=== PATIENT | male | born 1945 | race Caucasian/White ===

== ENCOUNTER 2020-10-15 09:32 | Inpatient (IN) ==
[2020-10-15 10:04] LABS: Basophils # 0.1 K/mcL (0.0-0.2); Basophils % 0.6 %; Hematocrit 41.4 % (37.5-50.1); Hemoglobin 13.8 g/dL (12.9-16.9); Immature Granulocytes % 0.8 % (0-4); Lymphocytes # 1.9 K/mcL (0.6-4.6); Lymphocytes % 13.7 %; Mean Corpuscular HGB Conc 33.3 g/dL (31.6-35.5); Mean Corpuscular Hemoglobin 28.6 pg (28.0-33.3); Mean Corpuscular Volume 85.9 fL (83.0-100.0); Mean Platelet Volume 8.9 fL (9.4-12.4); Monocytes # 1.2 K/mcL (0.0-1.3); Monocytes % 8.7 %; Neutrophils # 10.4 K/mcL (1.6-8.9); Platelet Count 296 K/mcL (140-400); Red Blood Count 4.82 M/mcL (4.19-5.50); Red Cell Distribution Width 14.5 % (11.5-14.5); Segmented Neutrophils % 76.2 %; White Blood Count 13.6 K/mcL (4.3-11.1)
[2020-10-15 10:10] LABS: INR 1.1; Prothrombin Time 12.3 Seconds (9.4-12.1)
[2020-10-15 10:12] LABS: Activated Partial Thrombo Time 30.8 Seconds (26.0-36.0)
[2020-10-15] MEDS ORDERED: Isovue-370 500 ML BOTTLE IVP ONE (10:22)
[2020-10-15 10:26] LABS: BUN/Creatinine Ratio 18 (6-26); Blood Urea Nitrogen 23 mg/dL (8-23); Calcium 9.5 mg/dL (8.6-10.3); Carbon Dioxide 23 mEq/L (23-29); Chloride 97 mEq/L (98-107); Glucose 186 mg/dL (70-105); Osmolality,Calculated 281 (280-300); Potassium 4.2 mEq/L (3.5-5.1); Sodium 131 mEq/L (136-145); eGFR For African Americans > 60 (> 60); eGFR For Non-African Americans 55 (> 60)
[2020-10-15] MEDS ORDERED: 0.9 % Sodium Chloride 1,000 ML IVC ONE (10:29)
[2020-10-15 10:40] LABS: Troponin I 5.01 ng/mL (< 0.04)
[2020-10-15] MEDS ORDERED: Aspirin 81 MG TAB.CHEW PO ONE (10:42)
[2020-10-15] MEDS ORDERED: Ondansetron 4 MG/2 ML VIAL IVP ONE (11:20)
[2020-10-15] MEDS ORDERED: Nitroglycerin 0.4 MG TAB.SUBL SL STA (11:30)
[2020-10-15] MEDS ORDERED: DilTIAZem 50 MG/50 ML IV.SOLN IVC SCH (11:30)
[2020-10-15] MEDS ORDERED: *HR* Heparin 5,000 UNIT/ML VIAL IVP ONE (11:48)
[2020-10-15] MEDS ORDERED: *HR* Heparin 5,000 UNIT/ML VIAL IVP PRN ×2 (11:48)
[2020-10-15 12:26] LABS: Hematocrit 37.5 % (37.5-50.1); Mean Corpuscular HGB Conc 32.5 g/dL (31.6-35.5); Mean Corpuscular Volume 86.2 fL (83.0-100.0); Platelet Count 245 K/mcL (140-400); Red Blood Count 4.35 M/mcL (4.19-5.50); Red Cell Distribution Width 14.6 % (11.5-14.5); White Blood Count 10.5 K/mcL (4.3-11.1)
[2020-10-15 12:32] LABS: Hemoglobin 12.2 g/dL (12.9-16.9)
[2020-10-15 12:36] LABS: Heparin anti-factor XA UFH < 0.04 IU/mL (0.30-0.70)
[2020-10-15 12:37] LABS: Prothrombin Time 12.1 Seconds (9.4-12.1)
[2020-10-15] MEDS: Heparin 25,000UNIT/250ML 1/2NS 25,000 UNIT/250 ML IV.SOLN IVC SCH ×2 (12:48→19:03)
[2020-10-15] MEDS ORDERED: *HR* Labetalol 20 MG/4 ML SYRINGE IVP STA (13:02)
[2020-10-15] MEDS ORDERED: 0.9 % Sodium Chloride 1,000 ML IVC SCH (13:30)
[2020-10-15] MEDS ORDERED: Perflutren Lipid Microsphere 1.3 ML in 0.9 % Sodium Chloride 8.7 ML IVP PRN (13:31)
[2020-10-15] MEDS ORDERED: Heparin 1,000 UNITS/500 mL 500 ML ONE (14:13)
[2020-10-15] MEDS ORDERED: *HR* Heparin 10,000 UNIT/10 ML VIAL ONE (14:13)
[2020-10-15] MEDS ORDERED: ISOVUE-370 200 ML INFUS..BTL ONE (14:13)
[2020-10-15] MEDS ORDERED: Nitroglycerin 1,000 MCG/10 ML VIAL IV ONE (14:13)
[2020-10-15] MEDS ORDERED: 0.9 % Sodium Chloride 2,000 ML ONE (14:13)
[2020-10-15] MEDS ORDERED: *HR* Midazolam HCl 2 MG/2 ML VIAL ONE (14:32)
[2020-10-15] MEDS ORDERED: *HR* FentaNYL (PF) 100 MCG/2 ML VIAL ONE (14:33)
[2020-10-15] MEDS: Budesonide/Formoterol 160/4.5 1 PUFF INH IH SCH (20:07)
[2020-10-16] MEDS ORDERED: Aspirin 81 MG TAB.CHEW PO SCH (09:00)
[2020-10-16] MEDS: Budesonide/Formoterol 160/4.5 1 PUFF INH IH SCH (11:17)
[2020-10-16] MEDS ORDERED: Dextrose Gel 15 GM/37.5 ML TUBE PO PRN ×2 (12:02)
[2020-10-16] MEDS ORDERED: *HR* Dextrose 50 % in Water (Vial) 50 ML VIAL IVP PRN (12:02)
[2020-10-16] MEDS ORDERED: D5% in Water 1,000 ML IVC PRN (12:02)
[2020-10-16] MEDS ORDERED: *HR* Heparin 5,000 UNIT/ML VIAL IVP PRN ×2 (13:09)
[2020-10-16] MEDS ORDERED: Heparin 25,000UNIT/250ML 1/2NS 25,000 UNIT/250 ML IV.SOLN IVC SCH (13:15)
[2020-10-16 13:58] LABS: Estimated Average Glucose 137 mg/dl; Hemoglobin A1C 6.4 %
[2020-10-16 14:54] VITALS: BP 116/77
[2020-10-16] MEDS ORDERED: Insulin LISPRO 300 UNITS/3 ML VIAL SUBQ SCH (18:00)
== END 2020-10-16 19:27 | disposition short-term general hospital (02) ==
LOC: 3BNU 09:32 → EMEROOARM 09:32 → SUATTDRO 12:54 → 2ANU 12:55 → ICNU 17:17 → 2NNU 10-16 16:24
PROVIDERS: ADMIT Internal Medicine; ATTEND Internal Medicine